=== PATIENT | male | born 1980 | race African-American/Black ===

== ENCOUNTER → 2018-12-14 | Emergency (ER) | payer OTHER ==
[~2018-12-14] VITALS: Ht 177.8 cm; Wt 114.8 kg
[~2018-12-14] MED LIST: BENADRYL25 MG ORAL; IBUPROFEN600 MG ORAL; NKM; ONDANSETRON ODT4 MG BC; PREDNISONE20 MG ORAL; RANITIDINE HCL150 MG ORAL; ROBAXIN500 MG PO; TRAMADOL HCL50 MG ORAL
[2018-12-14 20:30] VITALS: BP 156/93
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
[2018-12-14 21:07] VITALS: BP 156/93
--- NOTE | 2018-12-14 21:07 | NUR ---
ED Nurse Note: pt was cleared for discharge by jairon. prescription and discharge instruction explained and pt able to verbalize understanding. id band removed. pt able to walk with steady gait. pt left the ed with all belongings.
== END | disposition home or self-care (01) ==
LOC: EMR 21:01
DX: M54.2 Cervicalgia (principal); M62.830 Muscle spasm of back; I10 Essential (primary) hypertension; V43.62XA Car passenger injured in collision with other type car in traffic accident, initial encounter; Y92.9 Unspecified place or not applicable
CPT/HCPCS: 99282

== ENCOUNTER 2018-12-21 00:08 | Emergency (ER) | payer OTHER ==
[~2018-12-21] VITALS: Ht 177.8 cm; Wt 113.4 kg
[2018-12-21] MEDS ORDERED: HYDROcodone/Acetamin 5/325 tab ORAL ONE (01:00)
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
[2018-12-21 02:00] VITALS: BP 139/72
[2018-12-21 03:00] VITALS: BP 140/86
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
--- NOTE | 2018-12-21 03:15 | NUR ---
ED Nurse Note: meds given for pain slightly effective bringing pain level down to 4/10, pt deneis cp, sob, or any other complaints or discomforts, pt being d/c to home, given all workers comp forms, f/u info, and after care instrucitons, pt spouse at bedside to drive, pt denies any acute chagnes or increased distress, pt armband removed without incident, nad noted during d/c to home.
[2018-12-21 03:44] VITALS: BP 140/86
--- NOTE | 2018-12-21 08:30 | Diagnostic Imaging Report ---
Indications: Head trauma, pain Technique: Spiral acquisitions obtained through the brain. Angled axial and coronal 5 x 5 mm slices were reconstructed. Total dose length product 1516.84 mGycm. CTDI vol(s) 70.38 mGy. Dose reduction achieved using automated exposure control Comparison: None. Findings: No acute intracranial hemorrhage or edema. No mass effect or midline shift. Normal avendano-white differentiation. Intact calvarium. Mastoids are clear. Visualized orbits and sinuses are unremarkable. Impression: Negative This agrees with the preliminary interpretation provided overnight by [facility]. The CT scanner at [facility] is accredited by the [employer] and the scans are performed using protocols designed to limit radiation exposure to as low as reasonably achievable to attain images of sufficient resolution adequate for diagnostic evaluation.
== END 2018-12-21 03:30 | disposition home or self-care (01) ==
LOC: EMR 01:14
DX: S09.8XXA Other specified injuries of head, initial encounter (principal); W22.8XXA Striking against or struck by other objects, initial encounter; Y92.89 Other specified places as the place of occurrence of the external cause; Y99.0 Civilian activity done for income or pay; I10 Essential (primary) hypertension; J45.909 Unspecified asthma, uncomplicated
CPT/HCPCS: 70450; 99284